=== PATIENT | male | born 1985 | race Caucasian/White ===

== ENCOUNTER 2018-08-21 13:42 | Outpatient (CLI) | payer BC ==
--- NOTE | 2018-08-21 16:30 | ULT ---
BILATERAL SCROTAL ULTRASOUND INCLUDING COLOR AND SPECTRAL DOPPLER IMAGIN08/21/18 HISTORY: N50.9 - testicular lump. Right testis measures 4.5 x 3.3 x 2.5 cm. Left testis measures 4.4 x 3.2 x 2.6 cm. Right and left epididymal regions are within normal limits for size. There is a 0.4 x 0.5 x 0.7 cm ri ght epididymal cyst and two left epididymal cysts, one measuring 0.5 x 0.6 x 0.6 cm and the other one measuring 0.5 x 0.5 x 0.5 cm. No intratesticular mass. No evidence for testicular torsion. No hydroc keya. IMPRESSION: Small bilateral epididymal cysts. No intratesticular mass or testicular torsion or significant hydroc keya. POS: [facility]
== END 2018-08-21 13:43 | disposition home or self-care (01) ==
LOC: BICULT 13:42
PROVIDERS: ATTEND Family Medicine
DX: N50.9 Disorder of male genital organs, unspecified (principal); N50.3 Cyst of epididymis
CPT/HCPCS: 76870; 93976